=== PATIENT | female | born 1955 | race Caucasian/White ===

== ENCOUNTER 2018-04-22 19:07 | Emergency (ER) | payer MEDICAID, OTHER ==
[2018-04-22 19:14] VITALS: RESP 16; TEMP 97.7
--- NOTE | 2018-04-22 20:01 | ED PDOC ---
HPI: Trauma/Fall - HPI Time Seen by Provider: 04/22/18 19:20 Chief Complaint (Nursing): Trauma Chief Complaint (Provider): Trauma History Per: Patient, Family Onset/Duration Of Symptoms: Mins (x45) Associated Symptoms: denies: LOC Additional Complaint(s): Patient is a 63 y/o female with history of HTN and hypercholesterolemia who presents to the ED for evaluation s/p mechanical fall, about 45 minutes ago. Per patient's family member patient slipped on stairs and fell injuring her neck, head, back, right wrist, and legs. Family member notes that there was a large cut on patient's right ear with "a lot of blood." Patient was given 2 Tylenol prior to arrival with no relief. Family denies patient losing consciousness or vomiting. PMD: Obie Benavides Past Medical History Reviewed: Historical Data, Nursing Documentation, Vital Signs Vital Signs: Last Vital Signs Temp 97.7 F 04/22/18 19:11 Pulse 83 04/22/18 19:11 Resp 16 04/22/18 19:11 BP 148/85 04/22/18 19:11 Pulse Ox 100 04/22/18 19:11 - Medical History PMH: HTN, Hypercholesterolemia - Surgical History Surgical History: No Surg Hx - Family History Family History: States: Unknown Family Hx - Social History Current smoker - smoking cessation education provided: No Alcohol: None Drugs: Denies - Immunization History Hx Tetanus Toxoid Vaccination: No Hx Influenza Vaccination: No (Possibly received last week) Hx Pneumococcal Vaccination: No - Home Medications Home Medications: Ambulatory Orders Medication Instructions Recorded Ibuprofen [Motrin] 600 mg PO Q6 #30 tab 05/25/14 oxyCODONE/Acetaminophen [Percocet 1 tab PO Q6 PRN #20 tab 05/25/14 5/325 mg Tab] RX: traMADol [Ultram] 50 mg PO Q6H PRN #20 tab 07/01/15 Amlodipine/Atorvastatin [Caduet 5 1 tab DAILY 09/04/16 mg-20 mg Tablet] Azithromycin [Z-Brennon] 250 mg PO DAILY #4 tab 09/04/16 - Allergies Allergies/Adverse Reactions: Allergies Allergy/AdvReac Type Severity Reaction Status Date / Time No Known Allergies Allergy Verified 09/04/16 07:23 Review of Systems ROS Statement: Except As Marked, All Systems Reviewed And Found Negative Musculoskeletal: Positive for: Neck Pain, Arm Pain (right wrist), Back Pain, Leg Pain Neurological: Negative for: Other (loss of consciousness) Physical Exam - Reviewed Nursing Documentation Reviewed: Yes Vital Signs Reviewed: Yes - Physical Exam Appears: Positive for: Uncomfortable Head Exam: Positive for: ATRAUMATIC, NORMOCEPHALIC Skin: Positive for: Normal Color, Warm, Dry Eye Exam: Positive for: EOMI, Normal appearance, PERRL ENT: Positive for: Other (stellate laceration on upper right ear, minimal bleeding.) Neck: Positive for: Normal Cardiovascular/Chest: Positive for: Regular Rate, Rhythm. Negative for: Murmur Respiratory: Positive for: Normal Breath Sounds. Negative for: Respiratory Distress Gastrointestinal/Abdominal: Positive for: Normal Exam. Negative for: Tenderness Back: Positive for: Vertebral Tenderness (Lumbar spine tenderness) Extremity: Positive for: Tenderness (right wrist). Negative for: Pedal Edema, Deformity Neurologic/Psych: Positive for: Alert, Oriented. Negative for: Motor/Sensory Deficits - Laboratory Results Result Diagrams: 04/22/18 21:00 04/22/18 21:00 - ECG O2 Sat by Pulse Oximetry: 100 (RA) Pulse Ox Interpretation: Normal Medical Decision Making Medical Decision Making: Time: 19:27 Impression: Multisystem trauma s/p fall - rule out fracture, dislocation Initial Plan: --CT Cervical Spine W/O IV Contrast --CT Head W/O IV Contrast --CT Lumbar Spine W/O IV Contrast --CT Thoracic Spine W/O IV Contrast --Labs --Adacel 0.5 ml IM --Morphine 2 mg IV --Right Wrist X-Ray 2205 CT Head W/O IV Contrast IMPRESSION: No acute intracarnial abnormality. 2214 CT Cervical Spine W/O IV Contrast IMPRESSION: No acute cervical spine abnormality. 2217 CT Thoracic Spine W/O IV Contrast IMPRESSION: Negative CT Spine. 221 CT Lumbar Spine W/O IV Contrast IMPRESSION: No acute lumbar spine abnormality. -tetanus - pt and pts daughter aware of results of the imaging [employer] repaired laceration. (see her note) Patient is instructed to follow up in 4-[address] Christina for suture removal. 2328 Right wrist x-ray on my view shows no significant abnormality. 2350 Patient is ambulating with no difficulty and denies arm pain at this time. pt awake alert, airway intact. Patient requires no further treatment in the ED and stable for discharge with instructions to follow up with Dr. Christina and with primary doctor. ----- Scribe Attestation: Documented by Nilay Camacho, acting as a scribe for Andra Stein MD Provider Scribe Attestation: All medical record entries made by the Scribe were at my direction and personally dictated by me. I have reviewed the chart and agree that the record accurately reflects my personal performance of the history, physical exam, medical decision making, and the department course for this patient. I have also personally directed, reviewed, and agree with the discharge instructions and disposition. Disposition - Clinical Impression Clinical Impression: Fall (on) (from) other stairs and steps, initial encounter - Patient ED Disposition Is Patient to be Admitted: No Counseled Patient/Family Regarding: Studies Performed, Diagnosis, Need For Followup - Disposition Referrals: Mita Christina MD [Medical Doctor] - Disposition: Routine/Home Disposition Time: 23:40 Condition: IMPROVED Additional Instructions: follow up with Dr Christina for suture removal in 4-5 days also follow up with Dr Browning for reevaluation in 1-2 days return to the ED with any worsening or concerning symptoms Instructions: Preventing Falls in the Older Adult, Laceration Repair With Stitches (DC) Forms: [employer] ([place])
[2018-04-22] MEDS ORDERED: Tdap Vaccine 0.5 ml Vial (10-64 yrs) IM ONE ×2 (20:09→20:57)
[2018-04-22 21:18] LABS: BASO # 0.1 K/uL (0.0-0.2); BASO % 0.7 % (0.0-2.0); EOS # 0.1 K/uL (0.0-0.7); EOS % 0.8 % (0.0-4.0); HEMOGLOBIN 12.2 g/dL (12.0-16.0); LYMPH % 29.3 % (20.0-40.0); MEAN CELL VOLUME 87.4 fl (81.0-99.0); MEAN CORPUSCULAR HEMOGLOBIN 29.3 pg (27.0-31.0); MEAN CORPUSCULAR HGB CONC 33.6 g/dL (33.0-37.0); MEAN PLATELET VOLUME 8.8 fl (7.2-11.7); MONO # 0.7 K/uL (0.0-0.8); MONO % 6.8 % (0.0-10.0); NEUT # 6.4 K/uL (1.8-7.0); NEUT % 62.4 % (50.0-75.0); RBC 4.15 Mil/uL (3.80-5.20); RED CELL DISTRIBUTION WIDTH 13.3 % (11.5-14.5); WHITE BLOOD COUNT 10.2 K/uL (4.8-10.8)
[2018-04-22 21:21] LABS: ALB/GLOB RATIO 1.1 (1.0-2.1); ALBUMIN 4.1 g/dL (3.5-5.0); ALT/SGPT 57 U/L (9-52); AST/SGOT 44 U/L (14-36); BLOOD UREA NITROGEN 17 mg/dl (7-17); CALCIUM 9.6 mg/dL (8.4-10.2); GFR NON-AFRICAN AMERICAN > 60
[2018-04-22] MEDS ORDERED: Lidocaine/Prilocaine CREAM 5GM TP ONE ×2 (21:26→22:01)
[2018-04-22] MEDS ORDERED: Povidone Iodine Oint 10% Foilpak UD ONE (22:01)
--- NOTE | 2018-04-22 23:03 | CP.PCM.CON ---
History of Present Illness - History of Present Illness History of Present Illness: Plastic Surgery Consult: Dr. Christina Pt is a 63F with PMH of HTN & hypercholesterolemia who presented to [facility] s/p fall. Pt is accompanied by her daughter who states that the fall was witnessed as pt slipped and fell on the stairs in the back of the house. Pt denies LOC and denies dizziness or light headedness prior to fall. Pt states she fell onto her R side and had a cut on her R ear that was bleeding. She denies any other cuts on her body. Denies nausea/vomiting, fevers/chills, chest pain or SOB. In the ER, pt found to have a superficial 2x3 mm laceration on the medial helix. Plastic surgery called to evaluate. PMHx: as listed above PSHx: denies SocialHx: denies smoking/EtOH/drugs NKDA Review of Systems - Review of Systems All systems: reviewed and no additional remarkable complaints except (as per HPI) Past Patient History - Past Social History Alcohol: None Drugs: Denies - CARDIAC Hx Hypercholesterolemia: Yes Hx Hypertension: Yes - PSYCHIATRIC Hx Substance Use: No - SURGICAL HISTORY Hx Surgeries: No - ANESTHESIA Hx Anesthesia: No Hx Anesthesia Reactions: No Meds Allergies/Adverse Reactions: Allergies Allergy/AdvReac Type Severity Reaction Status Date / Time No Known Allergies Allergy Verified 09/04/16 07:23 Physical Exam - Constitutional Appears: Well, No Acute Distress - Head Exam Head Exam: ATRAUMATIC, NORMOCEPHALIC - ENT Exam ENT Exam: Mucous Membranes Moist Additional comments: 2x3 mm superficial laceration on the medial helix of R ear, clean - Respiratory Exam Respiratory Exam: NORMAL BREATHING PATTERN - Cardiovascular Exam Cardiovascular Exam: RRR - GI/Abdominal Exam GI & Abdominal Exam: Soft - Neurological Exam Neurological exam: Alert, Oriented x3 - Skin Skin Exam: Dry, Warm Results - Vital Signs Recent Vital Signs: Last Vital Signs Temp 97.7 F 04/22/18 19:11 Pulse 83 04/22/18 19:11 Resp 16 04/22/18 19:11 BP 148/85 04/22/18 19:11 Pulse Ox 100 04/22/18 22:27 - Labs Result Diagrams: 04/22/18 21:00 04/22/18 21:00 Labs: Laboratory Results - last 24 hr 04/22/18 04/22/18 21:00 21:00 WBC 10.2 RBC 4.15 Hgb 12.2 Hct 36.3 MCV 87.4 MCH 29.3 MCHC 33.6 RDW 13.3 Plt Count 240 MPV 8.8 Neut % (Auto) 62.4 Lymph % (Auto) 29.3 [place] % (Auto) 6.8 Eos % (Auto) 0.8 Baso % (Auto) 0.7 Neut # (Auto) 6.4 Lymph # (Auto) 3.0 [place] # (Auto) 0.7 Eos # (Auto) 0.1 Baso # (Auto) 0.1 Sodium 140 Potassium 4.5 Chloride 106 Carbon Dioxide 27 Anion Gap 12 BUN 17 Creatinine 0.7 Est GFR ( Amer) > 60 Est GFR (Non-Af Amer) > 60 Random Glucose 115 H Calcium 9.6 Total Bilirubin 0.4 AST 44 H ALT 57 H Alkaline Phosphatase 93 Total Protein 7.8 Albumin 4.1 Globulin 3.7 Albumin/Globulin Ratio 1.1 Assessment & Plan - Assessment and Plan (Free Text) Assessment: 63F with R ear laceration Plan: - repair laceration bedside - f/u with Dr. Christina in 4-5 days for suture removal - Apply bacitracin or Neosporin to affected area daily, keep clean - ok to shower after 24 hrs - d/w Dr. Sanford Castaneda
--- NOTE | 2018-04-22 23:13 | PCM.SURG1 ---
Surgeon's Initial Post Op Note - Surgeon's Notes Surgeon: Dr. Christina Salesperson Burial Needs: Dr. Castaneda Type of Anesthesia: Local Pre-Operative Diagnosis: R ear laceration Operative Findings: After informed consent was obtained. Pt was prepped and draped in sterile manner. 2.5% topical lidocaine was applied to numb up the area. The wound was then cleaned with copious amount of sterile water. The laceration was approximated using interrupted 5-0 prolene sutures. A total of 5 sutures were placed. Bacitracin was applied to the wound and pt tolerated the procedure well. Post-Operative Diagnosis: Same Operation Performed: Repair of R ear laceration Specimen/Specimens Removed: none Estimated Blood Loss: EBL {In ML}: 0 Blood Products Given: N/A Drains Used: No Drains Post-Op Condition: Good Date of Surgery/Procedure: 04/22/18 Time of Surgery/Procedure: 23:14
[2018-04-23 07:10] VITALS: BP 130/72; PULSE 71
--- NOTE | 2018-04-23 08:48 | CT ---
Date of service: 04/22/2018 PROCEDURE: CT HEAD WITHOUT CONTRAST. HISTORY: headache COMPARISON: None available. TECHNIQUE: Axial computed tomography images were obtained through the head/brain without intravenous contrast. Radiation dose: Total exam DLP = 751.72 mGy-cm. This CT exam was performed using one or more of the following dose reduction techniques: Automated exposure control, adjustment of the mA and/or kV according to patient size, and/or use of iterative reconstruction technique. FINDINGS: HEMORRHAGE: No intracranial hemorrhage. BRAIN: No mass effect or edema. No atrophy or chronic microvascular ischemic changes. VENTRICLES: Unremarkable. No hydrocephalus. CALVARIUM: Unremarkable. PARANASAL SINUSES: Unremarkable as visualized. No significant inflammatory changes. MASTOID AIR CELLS: Unremarkable as visualized. No inflammatory changes. OTHER FINDINGS: None. IMPRESSION: No intracranial mass, hemorrhage or evidence of acute infarct. No interval change. The preliminary findings for this examination were reported by [facility] at 04/22/2018 at 10:06 p.m.. There is concurrence of this report with the preliminary findings.
--- NOTE | 2018-04-23 09:04 | CT ---
Date of service: 04/22/2018 PROCEDURE: CT Cervical Spine without contrast HISTORY: fall COMPARISON: CT cervical spine 08/25/2013 TECHNIQUE: Axial computed tomography images were obtained of the cervical spine without the use of intravenous contrast. Coronal and sagittal reformatted images were created and reviewed. Radiation dose: Total exam DLP = 335.97 mGy-cm. This CT exam was performed using one or more of the following dose reduction techniques: Automated exposure control, adjustment of the mA and/or kV according to patient size, and/or use of iterative reconstruction technique. FINDINGS: VERTEBRAE: The vertebral bodies are maintained in height. Normal alignment maintained. The atlantoaxial articulation and odontoid process are intact. There is a rounded circumscribed lucent lesion in the C5 vertebral body unchanged from 08/25/2013. Not suspicious for malignant neoplasm. No other lytic or blastic osseous lesion is identified. DISCS/SPINAL CANAL/NEURAL FORAMINA: No significant central canal or neural foraminal stenosis. Discs heights are grossly preserved. PARASPINAL SOFT TISSUES: Unremarkable. OTHER FINDINGS: None. IMPRESSION: No fracture/dislocation. Stable lucent lesion in the C5 vertebral body. Otherwise unremarkable. The preliminary findings for this examination were reported by [facility] at 04/22/2018 at 10:15 p.m.. There is concurrence of this report with the preliminary findings.
--- NOTE | 2018-04-23 09:06 | CT ---
Date of service: 04/22/2018 PROCEDURE: CT Thoracic Spine without contrast HISTORY: pain, fall COMPARISON: None available. TECHNIQUE: Axial computed tomography images were obtained of the thoracic spine without intravenous contrast. Coronal and sagittal reformatted images were created and reviewed. Radiation dose: Total exam DLP = 672.19 mGy-cm. This CT exam was performed using one or more of the following dose reduction techniques: Automated exposure control, adjustment of the mA and/or kV according to patient size, and/or use of iterative reconstruction technique. FINDINGS: VERTEBRAE: Unremarkable. No fracture. Normal alignment. DISCS/SPINAL CANAL/NEURAL FORAMINA: Within the limits of the CT technique, no disc herniation seen. No central canal or neural foraminal stenosis.. PARASPINAL SOFT TISSUES: Unremarkable. OTHER FINDINGS: Incidentally noted mild nonspecific mosaic attenuation of the pulmonary parenchyma.. IMPRESSION: No fracture/dislocation. Nonspecific mosaic attenuation of the lungs. The preliminary findings for this examination were reported by [facility] at 04/22/2018 at 10:18 p.m.. There is concurrence of this report with the preliminary findings.
--- NOTE | 2018-04-23 10:16 | CT ---
Date of service: 04/22/2018 PROCEDURE: CT Lumbar Spine without contrast HISTORY: fall, pain COMPARISON: Lumbar spine TECHNIQUE: Axial computed tomography images were obtained of the lumbar spine without the use of intravenous contrast. Coronal and sagittal reformatted images were created and reviewed. Radiation dose: Total exam DLP = 1659.96 mGy-cm. This CT exam was performed using one or more of the following dose reduction techniques: Automated exposure control, adjustment of the mA and/or kV according to patient size, and/or use of iterative reconstruction technique. FINDINGS: VERTEBRAE: Vertebral bodies are maintained in height. Normal alignment maintained. Transverse processes and posterior elements are intact. Incidental hemangioma in the L2 vertebral body. No clinical significance. DISCS/SPINAL CANAL/NEURAL FORAMINA: L1-2: Unremarkable. L2-3: Unremarkable. L3-4: Unremarkable. L4-5: Unremarkable. L5-S1: Unremarkable. PARASPINAL SOFT TISSUES: Unremarkable. OTHER FINDINGS: None. IMPRESSION: No fracture/dislocation. The preliminary findings for this examination were reported by [facility] at 04/22/2018 at 10:19 p.m.. There is concurrence of this report with the preliminary findings.
--- NOTE | 2018-04-23 11:20 | RAD ---
Date of service: 04/22/2018 PROCEDURE: Right Wrist Radiographs. HISTORY: fall pain COMPARISON: None. FINDINGS: BONES: No acute fracture. JOINTS: Unremarkable. SOFT TISSUES: Normal. OTHER FINDINGS: None. IMPRESSION: No demonstrated fracture or dislocation.
[2018-04-28 08:10] VITALS: O2SAT 100
== END 2018-04-23 00:16 | disposition home or self-care (01) ==
LOC: H.ER 19:07
DX: S01.311A Laceration without foreign body of right ear, initial encounter (principal); I10 Essential (primary) hypertension; E78.00 Pure hypercholesterolemia, unspecified; W10.9XXA Fall (on) (from) unspecified stairs and steps, initial encounter; Z23 Encounter for immunization
CPT/HCPCS: 12001; 70450; 72125; 72128; 72131; 73110; 80053; 85025; 90471; 90715; 99283; J2270

== ENCOUNTER 2018-05-01 16:49 | Emergency (ER) | payer MEDICAID, OTHER ==
[2018-05-01 16:55] VITALS: BP 144/96; PULSE 83; RESP 16; TEMP 98.8; O2SAT 97
--- NOTE | 2018-05-01 17:09 | ED PDOC ---
HPI: Wound Care - HPI Time Seen by Provider: 05/01/18 16:59 Chief Complaint (Nursing): Suture/Staple Removal Chief Complaint (Provider): Suture/Staple Removal History Per: Patient Exam Limitations: no limitations Onset/Duration Of Symptoms: Days Additional Complaint(s): Heydi Solis is a 63 year old female with a past medical history of hypertension and hypercholesterolemia who is presenting to the ED for suture removal. Patient has five sutures placed in right ear 10 days ago. She denies any fevers, or chills, and states that she has been unable to follow up with the doctor. PMD: Obie Benavides Past Medical History Reviewed: Historical Data, Nursing Documentation, Vital Signs Vital Signs: Last Vital Signs Temp 98.8 F 05/01/18 16:54 Pulse 83 05/01/18 16:54 Resp 16 05/01/18 16:54 BP 144/96 H 05/01/18 16:54 Pulse Ox 97 05/01/18 16:54 - Medical History PMH: HTN, Hypercholesterolemia - Surgical History Surgical History: No Surg Hx - Family History Family History: States: Unknown Family Hx - Immunization History Hx Tetanus Toxoid Vaccination: No Hx Influenza Vaccination: No (Possibly received last week) Hx Pneumococcal Vaccination: No - Home Medications Home Medications: Ambulatory Orders Medication Instructions Recorded Ibuprofen [Motrin] 600 mg PO Q6 #30 tab 05/25/14 oxyCODONE/Acetaminophen [Percocet 1 tab PO Q6 PRN #20 tab 05/25/14 5/325 mg Tab] traMADol [Ultram] 50 mg PO Q6H PRN #20 tab 07/01/15 Amlodipine/Atorvastatin [Caduet 5 1 tab DAILY 09/04/16 mg-20 mg Tablet] Azithromycin [Z-Brennon] 250 mg PO DAILY #4 tab 09/04/16 - Allergies Allergies/Adverse Reactions: Allergies Allergy/AdvReac Type Severity Reaction Status Date / Time No Known Allergies Allergy Verified 05/01/18 16:54 Review of Systems ROS Statement: Except As Marked, All Systems Reviewed And Found Negative Constitutional: Negative for: Fever, Chills Physical Exam - Reviewed Nursing Documentation Reviewed: Yes Vital Signs Reviewed: Yes - Physical Exam Appears: Positive for: Well, Non-toxic, No Acute Distress Head Exam: Positive for: ATRAUMATIC, NORMAL INSPECTION, NORMOCEPHALIC ENT: Positive for: Other (right ear: [address]) Neurologic/Psych: Positive for: Alert, Oriented. Negative for: Motor/Sensory Deficits - ECG O2 Sat by Pulse Oximetry: 97 (RA) Pulse Ox Interpretation: Normal Medical Decision Making Medical Decision Making: Time: 17:10 Provider removed the sutures from patient's right ear. She tolerated the procedure well. Advised on aftercare. Patient stable for discharge. Scribe Attestation: Documented by Cata Davenport, acting as a scribe for Edmundo Oleary PA-C. Provider Scribe Attestation: All medical record entries made by the Scribe were at my direction and personally dictated by me. I have reviewed the chart and agree that the record accurately reflects my personal performance of the history, physical exam, medical decision making, and the department course for this patient. I have also personally directed, reviewed, and agree with the discharge instructions and disposition. Disposition - Clinical Impression Clinical Impression: Removal of suture - Disposition Disposition Time: 17:10 Condition: GOOD Instructions: Stitches Removal Print Language: DANISH
[2018-05-01] MEDS ORDERED: Bacitracin 500 Units/gm Oint Foilpak UD ONE (17:11)
== END 2018-05-01 17:21 | disposition home or self-care (01) ==
LOC: H.ER 16:49
DX: Z48.02 Encounter for removal of sutures (principal); E78.00 Pure hypercholesterolemia, unspecified; I10 Essential (primary) hypertension